=== PATIENT | male | born 1950 | race Caucasian/White ===

== ENCOUNTER 2018-09-18 17:41 | Inpatient (IN) ==
[2018-09-18] MEDS ORDERED: 0.9 % Sodium Chloride 1,000 ML IVC ONE (18:09)
[2018-09-18 18:22] LABS: Bilirubin,Urine Negative (Negative); Blood,Urine Large (Negative); Clarity,Urine Clear (Clear); Color,Urine Yellow (Yellow); Glucose,Urine (UA) Normal (Normal); Ketones,Urine Trace mg/dL (Negative); Leukocyte Esterase,Urine Small (Negative); Nitrite,Urine Positive (Negative); Protein,Urine 100 mg/dL (Neg-Trace); Urobilinogen,Urine Normal (Normal)
[2018-09-18 18:32] LABS: Bacteria,Urine Many per hpf (None-Few); RBC,Urine 50-100 per hpf (0-3); Squamous Epithelial Cell,Urine Few per lpf (None-Few)
[2018-09-18 18:33] LABS: Hyaline Casts,Urine Few per lpf (None-Few)
[2018-09-18] MEDS ORDERED: cefTRIAXone 1,000 MG in Water for inj. (sterile) 20 ML 10 ML IVP ONE (18:43)
[2018-09-18 18:59] LABS: Basophils # 0.1 K/mcL (0.0-0.2); Basophils % 0.3 %; Eosinophils % 0.1 %; Hematocrit 42.4 % (37.5-50.1); Hemoglobin 14.6 g/dL (12.9-16.9); Immature Granulocytes % 0.6 % (0-4); Lymphocytes % 2.9 %; Mean Corpuscular HGB Conc 34.4 g/dL (31.6-35.5); Mean Corpuscular Hemoglobin 30.3 pg (28.0-33.3); Mean Platelet Volume 11.8 fL (9.4-12.4); Monocytes # 1.2 K/mcL (0.0-1.3); Monocytes % 7.7 %; Neutrophils # 13.6 K/mcL (1.6-8.9); Platelet Count 173 K/mcL (140-400); Red Blood Count 4.82 M/mcL (4.19-5.50); Red Cell Distribution Width 13.7 % (11.5-14.5); Segmented Neutrophils % 88.4 %
[2018-09-18 19:02] LABS: Lymphocytes # 0.5 K/mcL (0.6-4.6)
[2018-09-18 19:12] LABS: Albumin 4.5 g/dL (3.5-5.7); Albumin/Globulin Ratio 1.3 (1.1-2.2); Bilirubin,Total 1.4 mg/dL (0.3-1.0); Globulin 3.5 g/dL (2.4-3.5); Potassium 3.6 mEq/L (3.5-5.1)
--- NOTE | 2018-09-18 19:35 | Emergency Department Note ---
Disposition Clinical Impression: Urinary tract infection Qualifiers: Urinary tract infection type: site unspecified Hematuria presence: without hematuria Qualified Code(s): N39.0 - Urinary tract infection, site not specified Disposition: Admitted As Inpatient Condition: Good Instructions: Urinary Tract Infection in Men (ED) Referrals: NONE,PCP [Primary Care Provider] - Time of Disposition: 19:44 General Adult HPI - General Chief complaint: ED Urogenital-Male Stated complaint: flu like symptoms Time Seen by Provider: 09/18/18 17:46 Source: patient Limitations: no limitations Nursing Notes Reviewed: Yes Vital Signs Reviewed: Yes - History of Present Illness HPI Narrative: fever since last night. has had back pain and polyuria and dysuria, decreased stream with dribbling. back pain has not been worse on one side. No abdominal pain. Vomited once last night. no diarrhea. took 600mg of ibuprofen about 3:30pm today. no cough, runny nose or sore throat. is bedfast for last 6 or so years secondary to MS. takes immuno-modulating infusions every 6 months. Says he had a UTI once but has been several years ago. No decubiti. no flu shot this season Onset (ago): day(s) (2) Location: back Radiation: non-radiation Pain Severity: moderate Pain Scale: 5 Quality: aching Consistency: constant Improves with: nothing Worsens with: nothing Associated symptoms: Reports: fever/chills, nausea/vomiting, other (urinary symptoms as above) Treatments Prior to Arrival: NSAID - Related Data Home Medications Medication Instructions Recorded Confirmed Citalopram [CeleXA] 20 mg PO BID 09/17/17 09/18/18 Furosemide [Lasix] 40 mg PO DAILY 09/17/17 09/18/18 Tizanidine HCl 4 mg PO 5XD 09/17/17 09/18/18 Allergies Allergy/AdvReac Type Severity Reaction Status Date / Time No Known Allergies Allergy Verified 09/18/18 17:46 Constitutional: Reports: fever, chills, weakness Eyes: Denies: eye pain, eye discharge ENT ED: Denies: ear pain, throat pain, dental pain, congestion Cardiovascular: Denies: chest pain, palpitations Respiratory: Denies: cough, dyspnea, wheezes Gastrointestinal: Reports: nausea, vomiting. Denies: abdominal pain, diarrhea Genitourinary: Reports: dysuria, frequency Musculoskeletal: Reports: back pain. Denies: neck pain, joint swelling Integumentary: Denies: rash, abrasion, lesions Neurological: Reports: weakness. Denies: headache Psychiatric: Denies: anxiety, depression Endocrine: Denies: fatigue, heat or cold intolerance Hematological/Lymphatic: Denies: easy bleeding, easy bruising Allergic/Immunologic: Denies: facial swelling, urticaria Past Medical History - Past Medical History Medical history: Reports: other Surgical history: Reports: cholecystectomy, other Psychiatric history: Reports: no psych history - Social History Smoking Status: Never smoker Smokeless Tobacco Status: No Alcohol use: Reports: none Drug use: Reports: none Physical Exam - General Limitations: no limitations General appearance: alert, in no apparent distress - Eye Eye exam: Present: normal appearance, PERRL, EOMI. Absent: scleral icterus, conjunctival injection - ENT ENT exam: normal exam, normal oropharynx, mucous membranes moist, TM's normal bilaterally - Neck Neck exam: Present: normal inspection, full ROM. Absent: lymphadenopathy - Chest Chest inspection: Present: normal inspection - Respiratory Respiratory exam: Present: normal lung sounds bilaterally - Cardiovascular Cardiovascular exam: Present: regular rate, normal rhythm, normal heart sounds - Abdominal Exam Abdominal exam: Present: soft, Non-Tender, normal bowel sounds - Rectal Exam [employer] Instructor present during exam: Yes Rectal exam: Present: normal inspection, normal rectal tone, prostate enlargement (4+ mildly boggy feeling prostate, no nodule). Absent: prostate tenderness - Male exam: Present: normal inspection, normal testicular lie - Extremities Exam Extremities exam: Present: normal inspection, pedal edema (1+ bilaterally) - Back Exam Back exam: Present: normal inspection. Absent: CVA tenderness (R), CVA tenderness (L) - Neurological Exam Neurological exam: Present: alert, oriented X3, other (generalized weakness) - Psychiatric Psychiatric exam: Present: normal affect, normal mood - Skin Skin exam: Present: warm, dry, normal color Course - Reevaluation(s) Reevaluation #1: he was given tylenol for his fever but it hasn't changed so far. has been given a liter of fluids. his blood pressure is stable and his lactate was normal. I discussed with Dr. Kennedy and he has been accepted for admission here Vital Signs Temperature 103.1 F H 09/18/18 17:47 Pulse Rate 90 09/18/18 17:47 Respiratory Rate 18 09/18/18 17:47 Blood Pressure 163/85 09/18/18 17:47 O2 Sat by Pulse Oximetry 96 09/18/18 17:47 Temperature 103.1 F H 09/18/18 19:25 Pulse Rate 101 09/18/18 19:25 Respiratory Rate 14 09/18/18 19:25 Blood Pressure 155/78 09/18/18 19:25 O2 Sat by Pulse Oximetry 96 09/18/18 17:47 Oxygen Delivery Oxygen Delivery Room Air Medical Decision Making - Differential Diagnosis UTI, prostatitis, pneumonia, influenza, sepsis, meningitis, intraabdominal - Medical Records Medical records reviewed: Yes I reviewed the patient's medical records. - Lab Data Lab results reviewed: Yes I reviewed the patient's lab results. Result diagrams: 09/18/18 18:35 09/18/18 18:35 Lab Results 09/18/18 09/18/18 09/18/18 Range/Units 18:05 18:19 18:35 WBC 15.4 H (4.3-11.1) K/mcL RBC 4.82 (4.19-5.50) M/mcL Hgb 14.6 (12.9-16.9) g/dL Hct 42.4 (37.5-50.1) % MCV 88.0 (83.0-100.0) fL MCH 30.3 (28.0-33.3) pg MCHC 34.4 (31.6-35.5) g/dL RDW 13.7 (11.5-14.5) % Plt Count 173 (140-400) K/mcL MPV 11.8 (9.4-12.4) fL Immature Gran % 0.6 (0-4) % Seg Neutrophils % 88.4 % Lymphocytes % 2.9 % Monocytes % 7.7 % Eosinophils % 0.1 % Basophils % 0.3 % Neutrophils # 13.6 H (1.6-8.9) K/mcL Lymphocytes # 0.5 L (0.6-4.6) K/mcL Monocytes # 1.2 (0.0-1.3) K/mcL Eosinophils # 0.0 (0.0-0.6) K/mcL Basophils # 0.1 (0.0-0.2) K/mcL Sodium (136-145) mEq/L Potassium (3.5-5.1) mEq/L Chloride (98-107) mEq/L Carbon Dioxide (23-29) mEq/L BUN (8-23) mg/dL Creatinine (0.70-1.30) mg/dL Est GFR ( Amer) (> 60) Est GFR (Non-Af Amer) (> 60) BUN/Creatinine Ratio (6-26) Glucose (70-105) mg/dL Calculated Osmolality (280-300) Lactic Acid (0.5-2.2) mmol/L Calcium (8.6-10.3) mg/dL Total Bilirubin (0.3-1.0) mg/dL AST (13-39) Units/L ALT (7-52) Units/L Alkaline Phosphatase (34-104) Units/L Serum Total Protein (6.4-8.9) g/dL Albumin (3.5-5.7) g/dL Globulin (2.4-3.5) g/dL Albumin/Globulin Ratio (1.1-2.2) Urine Color Yellow (Yellow) Urine Clarity Clear (Clear) Urine pH 6.0 (5.0-8.0) pH Units Ur Specific [place] 1.020 (1.010-1.025) Urine Protein 100 H (Neg-Trace) mg/dL Urine Glucose (UA) Normal (Normal) mg/dL Urine Ketones Trace H (Negative) mg/dL Urine Blood Large H (Negative) Urine Nitrite Positive A (Negative) Urine Bilirubin Negative (Negative) Urine Urobilinogen Normal (Normal) mg/dL Ur Leukocyte Esterase Small H (Negative) Urine Microscopic RBC 50-100 H (0-3) per hpf Urine Microscopic WBC 5-15 H (0-3) per hpf Ur Squamous Epith Cells Few (None-Few) per lpf Urine Bacteria Many H (None-Few) per hpf Hyaline Casts Few (None-Few) per lpf Ur Culture Indicated? YES A (NO) Stool Occult Blood Positive A (Negative) 09/18/18 09/18/18 Range/Units 18:35 18:35 WBC (4.3-11.1) K/mcL RBC (4.19-5.50) M/mcL Hgb (12.9-16.9) g/dL Hct (37.5-50.1) % MCV (83.0-100.0) fL MCH (28.0-33.3) pg MCHC (31.6-35.5) g/dL RDW (11.5-14.5) % Plt Count (140-400) K/mcL MPV (9.4-12.4) fL Immature Gran % (0-4) % Seg Neutrophils % % Lymphocytes % % Monocytes % % Eosinophils % % Basophils % % Neutrophils # (1.6-8.9) K/mcL Lymphocytes # (0.6-4.6) K/mcL Monocytes # (0.0-1.3) K/mcL Eosinophils # (0.0-0.6) K/mcL Basophils # (0.0-0.2) K/mcL Sodium 136 (136-145) mEq/L Potassium 3.6 (3.5-5.1) mEq/L Chloride 100 (98-107) mEq/L Carbon Dioxide 24 (23-29) mEq/L BUN 26 H (8-23) mg/dL Creatinine 2.07 H (0.70-1.30) mg/dL Est GFR ( Amer) 39 L (> 60) Est GFR (Non-Af Amer) 32 L (> 60) BUN/Creatinine Ratio 13 (6-26) Glucose 106 H (70-105) mg/dL Calculated Osmolality 287 (280-300) Lactic Acid 1.7 (0.5-2.2) mmol/L Calcium 10.0 (8.6-10.3) mg/dL Total Bilirubin 1.4 H (0.3-1.0) mg/dL AST 23 (13-39) Units/L ALT 26 (7-52) Units/L Alkaline Phosphatase 106 H (34-104) Units/L Serum Total Protein 8.0 (6.4-8.9) g/dL Albumin 4.5 (3.5-5.7) g/dL Globulin 3.5 (2.4-3.5) g/dL Albumin/Globulin Ratio 1.3 (1.1-2.2) Urine Color (Yellow) Urine Clarity (Clear) Urine pH (5.0-8.0) pH Units Ur Specific [place] (1.010-1.025) Urine Protein (Neg-Trace) mg/dL Urine Glucose (UA) (Normal) mg/dL Urine Ketones (Negative) mg/dL Urine Blood (Negative) Urine Nitrite (Negative) Urine Bilirubin (Negative) Urine Urobilinogen (Normal) mg/dL Ur Leukocyte Esterase (Negative) Urine Microscopic RBC (0-3) per hpf Urine Microscopic WBC (0-3) per hpf Ur Squamous Epith Cells (None-Few) per lpf Urine Bacteria (None-Few) per hpf Hyaline Casts (None-Few) per lpf Ur Culture Indicated? (NO) Stool Occult Blood (Negative) - Radiology Data Radiology results reviewed: Yes I reviewed the patient's radiology results.
[2018-09-18] MEDS ORDERED: Ibuprofen 400 MG TABLET PO PRN (20:37)
[2018-09-18] MEDS ORDERED: Naloxone 0.4 MG/ML INJ IVP PRN (20:37)
[2018-09-18] MEDS ORDERED: Ibuprofen 600 MG TABLET PO PRN (21:30)
[2018-09-18] MEDS: D5% in 0.45% NACL 1,000 ML IVC SCH (23:12)
[2018-09-18] MEDS: Acetaminophen 325 MG TABLET PO PRN (23:15)
[2018-09-18] MEDS: tiZANidine 4 MG TABLET PO SCH (23:23)
[2018-09-18] MEDS: *HR* Heparin 5,000 UNIT/ML VIAL SQ SCH (23:25)
[2018-09-19 04:51] LABS: Basophils # 0.1 K/mcL (0.0-0.2); Basophils % 0.3 %; Eosinophils % 0.1 %; Hematocrit 33.2 % (37.5-50.1); Hemoglobin 11.5 g/dL (12.9-16.9); Immature Granulocytes % 0.9 % (0-4); Lymphocytes # 1.6 K/mcL (0.6-4.6); Mean Corpuscular HGB Conc 34.6 g/dL (31.6-35.5); Mean Corpuscular Hemoglobin 30.4 pg (28.0-33.3); Mean Corpuscular Volume 87.8 fL (83.0-100.0); Mean Platelet Volume 11.8 fL (9.4-12.4); Monocytes # 2.1 K/mcL (0.0-1.3); Monocytes % 11.3 %; Neutrophils # 14.3 K/mcL (1.6-8.9); Platelet Count 148 K/mcL (140-400); Red Blood Count 3.78 M/mcL (4.19-5.50); Red Cell Distribution Width 13.8 % (11.5-14.5); Segmented Neutrophils % 78.4 %
[2018-09-19 05:03] LABS: Albumin 3.3 g/dL (3.5-5.7); Albumin/Globulin Ratio 1.2 (1.1-2.2); Calcium 8.9 mg/dL (8.6-10.3); Globulin 2.8 g/dL (2.4-3.5); Potassium 3.4 mEq/L (3.5-5.1); Total Protein 6.1 g/dL (6.4-8.9)
[2018-09-19] MEDS: cefTRIAXone 1,000 MG in Water for inj. (sterile) 20 ML 10 ML IVP SCH (09:45)
[2018-09-19] MEDS: D5% in 0.45% NACL 1,000 ML IVC SCH (09:45)
[2018-09-19] MEDS: tiZANidine 4 MG TABLET PO SCH ×4 (09:47→20:55)
[2018-09-19] MEDS: *HR* Heparin 5,000 UNIT/ML VIAL SQ SCH ×2 (09:47→20:59)
[2018-09-19] MEDS: Furosemide 40 MG TABLET PO SCH (09:48)
--- NOTE | 2018-09-19 16:02 | Internal Med History&Physical ---
Date of Encounter: 09/19/18 Time of Encounter: 16:01 Assessment and Plan (1) Urinary tract infection Current visit: Yes Status: Acute We presume this is prostatitis with bladder infection. He seems to be doing nicely on ceftriaxone. However, we will wait for bladder culture results and will need to consider 6 weeks of treatment given probable prostatitis. He requested a Luna catheter but there was resistance and I advised nursing to avoid insertion if he had resistance to some of that we would not irritate his prostate further. Postvoid residual was less than or equal to 100 mL's. We will admit him for IV antibiotics and to follow his vital signs. I think he is stable and that even though he is slightly dehydrated his blood pressure is normal given his debilitated state. He shows no signs of sepsis, currently but we need to follow and will continue his antibiotic as well as his IV fluids for at least a day. Qualifiers: Urinary tract infection type: site unspecified Hematuria presence: without hematuria Qualified Code(s): N39.0 - Urinary tract infection, site not specified (2) Multiple sclerosis Current visit: Yes Status: Acute This is apparently at baseline and treated with Tizanadine and a disease modifying anti-immune IV medication, every 6 months. (3) Depression Current visit: Yes Status: Acute Currently treated with Lexapro. We will continue this home medication. Qualifiers: Depression Type: other depression Qualified Code(s): F32.89 - Other specified depressive episodes (4) Heme positive stool Current visit: Yes Status: Acute Note is made of this when hemoglobin and other signs are stable. We will need to follow-up with family physician. We will empirically begin omeprazole. Internal Medicine - H&P: HPI Admitted From: Home Plans for Post Hospital Care: Home History of present illness: Mr. Patel is a 68 year old male who was in usual state of health until 2 days ago. Then, he developed warmth and feeling like he had a fever (not assessed) and frequent chills. He also became weak and more stiff. This stiffness is a symptom of infection or other illness causing a worsening in his multiple sclerosis. Because of low back pain, he took ibuprofen 600 mg, once only. He has no dysuria hematuria change in urine other than dark in color. He has intermittent irritable bowel type symptoms with constipation alternating with diarrhea. This is been evaluated per his primary doctor. He has had in March 2018 a colonoscopy and upper endoscopy. He had "a type of hernia but not a hiatal hernia" per his endoscopy. He has no melena or hematochezia. He rec ently began [id number] probiotics and states that this has helped. 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 Since then, he is been at home and is now essentially bedridden. He uses tizinainde 5 times a day and uses an infusion at a hospital every 6 months. He is due for this again in November. He also has an eye problem which she says is not optic neuritis, it causes him frequent eye pain and headache and he has a medicine as needed for this but he has not needed any in quite some time and is not sure what it is. He has no drug allergies. Medications were reviewed with him. Past surgical history includes a cervical procedure that was apparently fusion at C[facility]. He also had his gallbladder removed. No other surgeries of significance. Medical illnesses include GERD, hypertension, multiple sclerosis as above, as well as depression for which he takes Lexapro. He has a [id number] smoking history and stopped about 3 years ago but since then uses electronic cigarettes. He has just a couple of years of excess alcohol intake but not for over 40 years. He has been disabled/retired since 1999. He lives with his who has a large part of the information in terms of verification and/or interview. He is known to have early cataracts. He is bed ridden, most of the time. He is able to get out but this requires a special wheelchair. He requires assistance for transfers, all the time. He for upper plate denture but no lower. He recently had "his veins scanned." He states that this is all normal. Patient has no complaint of chest discomfort, dyspnea, orthopnea, breathing problems, palpitations, nausea or vomiting, constipation or diarrhea, other changes in bowel habits, heartburn, difficulty with urination, kidney problems or kidney stones, fevers chills or sweats, rash or itching, seizures, headache or lightheadedness, heat or cold intolerance, blood problems or anemia, or other new complaints, except as mentioned above. Review of systems is otherwise negative. Past Med Surg Social Fam HX - Past Medical History Medical history: other Additional medical history: multiple sclerosis Psychiatric history: no psych history - Past Surgical History Surgical History: cholecystectomy, other Additional surgical history: colonoscopy, fractured ribs, C3/4 fusion - Social History Smoking Status: Never smoker Smokeless Tobacco Status: No Alcohol use: none Drug use: none Internal Medicine - H&P: Meds Furosemide [Lasix] 40 mg PO DAILY 09/17/17 [History] Tizanidine HCl 4 mg PO 5XD 09/17/17 [History] Escitalopram [Lexapro] 10 mg PO DAILY 09/19/18 [History] Allergy/AdvReac Type Severity Reaction Status Date / Time No Known Allergies Allergy Verified 09/18/18 17:46 - Constitutional Vitals: Temp Pulse Resp BP Pulse Ox 98.6 F 56 16 98/62 96 09/19/18 11:55 09/19/18 11:55 09/19/18 11:55 09/19/18 12:18 09/19/18 11:55 Exam: Examination: (Except as mentioned above): General: In no apparent distress, alert and oriented 3. At the beginning of the exam he has marked facial flushing. This persists for about 10 minutes and seems to improve as exam goes on. Head: Atraumatic and normocephalic. Eyes: Extraocular muscles are intact, pupils equal round and reactive to light and accommodation. Sclerae anicteric. Ears: External ears are normal to inspection and hearing is grossly normal. Nose: Patent without lesion noted. Mouth: No intraoral lesions seen. Dentition is unremarkable. Neck: Supple with trachea midline. There is no thyromegaly or adenopathy and carotids are 2+ without bruit heard. Respiratory: No use of accessory muscles. Lungs are clear throughout. Normal airflow. Cardiovascular: Regular rate and rhythm without murmur appreciated. Abdomen: Bowel sounds are normal. No hepatosplenomegaly masses or tenderness. Obese and therefore difficult to palpate deeply. There is no costovertebral angle tenderness. He has no lower abdominal or suprapubic tenderness. Extremities: No cyanosis clubbing or edema. Neurological: A and O 3. Cranial nerves II through XII are intact. He is diffusely weak but is able to turn in bed, uses upper extremities adequately. He has 2 out of 5 weakness on the left and 3 out of 5 weakness on the right lower extremities. Skin: Warm and non-diaphoretic with no lesions noted. Breasts, pelvic and rectal: Not examined. However, emergency room physician did a rectal exam and noted that he had a large prostate which was boggy in consistency. There was also heme positive, nonbloody stool. Internal Med - H&P Results - Labs CBC & Chem 7: 09/19/18 04:40 09/19/18 04:40 Labs: Short CBC 09/18/18 09/19/18 Range/Units 18:35 04:40 WBC 15.4 H 18.2 H (4.3-11.1) K/mcL Hgb 14.6 11.5 L D (12.9-16.9) g/dL Hct 42.4 33.2 L (37.5-50.1) % Plt Count 173 148 (140-400) K/mcL Neutrophils # 13.6 H 14.3 H (1.6-8.9) K/mcL BMP 09/18/18 09/19/18 18:35 04:40 Sodium 136 135 L Potassium 3.6 3.4 L Chloride 100 103 Carbon Dioxide 24 23 BUN 26 H 29 H Creatinine 2.07 H 2.19 H Glucose 106 H 146 H Calcium 10.0 8.9 Liver Function 09/18/18 09/19/18 Range/Units 18:35 04:40 Total Bilirubin 1.4 H 1.0 (0.3-1.0) mg/dL AST 23 18 (13-39) Units/L ALT 26 21 (7-52) Units/L Alkaline Phosphatase 106 H 77 (34-104) Units/L Albumin 4.5 3.3 L (3.5-5.7) g/dL Urine 09/18/18 Range/Units 18:05 Urine Color Yellow (Yellow) Urine Clarity Clear (Clear) Urine pH 6.0 (5.0-8.0) pH Units Ur Specific [place] 1.020 (1.010-1.025) Urine Protein 100 H (Neg-Trace) mg/dL Urine Glucose (UA) Normal (Normal) mg/dL - Impressions ITS Impressions Chest X-Ray 09/18/18 18:13 IMPRESSION: No acute abnormality detected. D/ / Itz Webb MD / Itz Webb MD Interpreting Provider: tIz Webb MD
[2018-09-19] MEDS: Acetaminophen 325 MG TABLET PO PRN (20:54)
[2018-09-20] MEDS: Acetaminophen 325 MG TABLET PO PRN (04:15)
[2018-09-20] MEDS ORDERED: Lactobacillus 1 EACH CAP.SPRINK PO SCH (09:00)
[2018-09-20] MEDS: cefTRIAXone 1,000 MG in Water for inj. (sterile) 20 ML 10 ML IVP SCH (09:17)
[2018-09-20] MEDS: tiZANidine 4 MG TABLET PO SCH ×2 (09:17→13:39)
[2018-09-20] MEDS: Furosemide 40 MG TABLET PO SCH (09:17)
--- NOTE | 2018-09-20 09:23 | Internal Med Progress Note ---
Addendum entered and electronically signed by Rocky Kennedy MD 09/20/18 11:49: I have personally performed a face to face evaluation on this patient. I have r eviewed and agree with the care plan. History and Exam by me shows: Patient is generally feeling well. He has no flank, back, lower back, suprapubic, or urinary symptoms. He would like to go home today as he is tired of the bed and would rather be in his wheelchair and up and around. We discussed his transportation home. Because of repair of his pain, he will need some other mode of transportation and social service said that I should simply referred to arrange nursing to have him ambulet transportation. Discussed care with other providers and/or nursing. Patient has no complaint of chest discomfort, dyspnea, orthopnea, palpitations, nausea or vomiting, constipation or diarrhea, other changes in bowel habits, difficulty with urination, rash or itching, or other new complaints, except as mentioned above. Review of systems is otherwise negative. Examination: (Except as mentioned above): General: In no apparent distress. Alert and oriented 3. Nondiaphoretic. Head: Atraumatic and normocephalic. Respiratory: No use of accessory muscles. Lungs are clear throughout. Normal airflow. Cardiovascular: Regular rate and rhythm without murmur appreciated. Abdomen: Bowel sounds are normal. No hepatosplenomegaly mass or tenderness appreciated. Obese and therefore difficult to palpate deeply. No CVA tenderness. Extremities: No cyanosis clubbing or edema. He has the same weakness as described, before. Skin: Warm and non-diaphoretic with no new lesions noted. Creatinine has decreased markedly to 1.28. His potassium is low at 3.1 and magnesium is marginally low at 1.8. We will arrange potassium supplementation for a few days. I agreed to send him on a week's worth of cephalosporin and probably 5 or 6 weeks of suppressive antibiotics, after we know about sensitivities which unfortunately will not be until tomorrow. He understands importance of follow- up. Original Note: Date of Encounter: 09/20/18 Time of Encounter: 09:20 - Assessment and plan (1) Urinary tract infection Current Visit: Yes Status: Acute Assessment and plan: Urine culture pending. Patient denies any symptoms. Continue ceftriaxone. Qualifiers: Urinary tract infection type: site unspecified Hematuria presence: without hematuria Qualified Code(s): N39.0 - Urinary tract infection, site not speci fied (2) Multiple sclerosis Current Visit: Yes Status: Acute Assessment and plan: Patient denies any new symptoms. Continue tizanidine. Assist with ADLs. (3) Depression Current Visit: Yes Status: Acute Assessment and plan: Stable with Lexapro. Denies any complaints. Qualifiers: Depression Type: other depression Qualified Code(s): F32.89 - Other specified depressive episodes (4) Heme positive stool Current Visit: Yes Status: Acute Assessment and plan: Continue omeprazole. Will monitor. - Time Spent With Patient less than 15 minutes - Subjective Interval history: Resting in bed, denies any pain or acute needs at this time. Denies fever, chills, nausea, vomiting or diarrhea. Denies any urinary symptoms. States bowels moving as normal. Maintaining appetite and hydration. Awaiting urine culture. Continue ceftriaxone. - Constitutional Vitals: Temp Pulse Resp BP Pulse Ox 98.8 F 67 17 172/77 91 09/20/18 08:31 09/20/18 08:31 09/20/18 08:31 09/20/18 08:31 09/20/18 08:31 General appearance: Present: cooperative, A&O X 3, pleasant, no acute distress, answers questions appropriately - Head Head exam: Present: atraumatic, normocephalic - Eye Eye exam: Present: PERRL, conjuntiva pink, sclera anicteric Pupils: Present: PERRL - Neck Neck exam general surgery: Present: supple, trachea midline. Absent: lymphadenopathy - Respiratory Respiratory exam: Present: CTAB. Absent: accessory muscle use, rales, rhonchi, wheezes - Cardiovascular Cardiovascular exam: Present: RRR, +S1, +S2. Absent: diastolic murmur, gallop, rubs, systolic murmur - GI/Abdominal GI/Abdominal exam: Present: normal bowel sounds, soft, no peritoneal signs. Absent: distended, tenderness - Extremities Exam Extremities exam: Present: warm, radial pulses palpable and symmetrical. Absent: calf tenderness, cyanotic, pedal edema Additional comments: RUE, RLE strength 3/5, LUE, LLE 2/5 - Neurological Exam Neurological exam: Present: CN II-XII intact, oriented X3, no focal deficits. Absent: pronater drift, facial droop, speech deficit - Skin Skin exam: Present: dry, intact Internal Medicine: Result - Labs CBC & Chem 7: 09/19/18 04:40 09/19/18 04:40 Consult Discharge Plan - Plan Referrals: NONE,PCP [Primary Care Provider] -
[2018-09-20] MEDS: *HR* Heparin 5,000 UNIT/ML VIAL SQ SCH (09:25)
[2018-09-20] MEDS ORDERED: cloNIDine HCl 0.1 MG TABLET PO PRN (10:17)
[2018-09-20 11:14] LABS: Basophils # 0.1 K/mcL (0.0-0.2); Basophils % 0.7 %; Eosinophils # 0.1 K/mcL (0.0-0.6); Eosinophils % 0.6 %; Hematocrit 37.4 % (37.5-50.1); Hemoglobin 13.3 g/dL (12.9-16.9); Immature Granulocytes % 0.6 % (0-4); Lymphocytes # 0.8 K/mcL (0.6-4.6); Mean Corpuscular HGB Conc 35.6 g/dL (31.6-35.5); Mean Corpuscular Volume 87.2 fL (83.0-100.0); Mean Platelet Volume 11.9 fL (9.4-12.4); Monocytes # 0.9 K/mcL (0.0-1.3); Monocytes % 10.1 %; Neutrophils # 7.1 K/mcL (1.6-8.9); Platelet Count 169 K/mcL (140-400); Red Blood Count 4.29 M/mcL (4.19-5.50); Red Cell Distribution Width 13.7 % (11.5-14.5)
[2018-09-20 11:24] LABS: BUN/Creatinine Ratio 16 (6-26); Blood Urea Nitrogen 21 mg/dL (8-23); Calcium 9.5 mg/dL (8.6-10.3); Carbon Dioxide 24 mEq/L (23-29); Chloride 103 mEq/L (98-107); Glucose 98 mg/dL (70-105); Osmolality,Calculated 283 (280-300); Potassium 3.1 mEq/L (3.5-5.1); Sodium 135 mEq/L (136-145); eGFR For Non-African Americans 56 (> 60)
--- NOTE | 2018-09-20 12:00 | Discharge Summary ---
Addendum entered and electronically signed by Rocky Kennedy MD 09/21/18 10:55: Patient's urine culture returned with Morganella morganii which is resistant to cefazolin. For this reason, we will switch him from Omnicef to Bactrim for coverage. This is been called to his pharmacy and we will ask that his primary care physician be notified. Addendum entered and electronically signed by Rocky Kennedy MD 09/20/18 13:22: Please see my progress note, today. Original Note: - NOTES TO OUTPATIENT PROVIDER Notes to Outpatient Provider: Urine culture pending. Should have results . Continue [facility] staff for 7 days. Might require 6 weeks of at antibiotic due to prostatitis Orders not resulted at time of discharge: Pending orders 09/18/18 18:05 Culture,Urine [RM] Stat 09/18/18 18:35 Culture,Blood [BC] Stat Date of Encounter: 09/20/18 Time of Encounter: 11:58 - Discharge Diagnosis (1) Urinary tract infection Priority: Primary Status: Acute Comments: Continue omnicef 300 mg one tablet every 12 hours for 7 days. Follow up with PCP. Qualifiers: Urinary tract infection type: site unspecified Hematuria presence: without hematuria Qualified Code(s): N39.0 - Urinary tract infection, site not specified (2) Multiple sclerosis Priority: Secondary Status: Chronic Comments: Stable. Continue current medication. Follow up with neurologist. (3) Depression Priority: Secondary Status: Chronic Comments: stable. continue lexapro Qualifiers: Depression Type: other depression Qualified Code(s): F32.89 - Other specified depressive episodes (4) Heme positive stool Priority: Secondary Status: Acute Comments: hgb stable. continue omeprazole. follow up with PCP. (5) Hypokalemia Priority: Secondary Status: Acute Comments: K 3.1. Prescription sent home with patient for potassium chloride 20meq 3 times a day for 3 days Hospital course: Mr. Patel is a 68 year old male Discharge discussed with: patient, family, nurse, social work - Time Spent with Patient Total time spent providing and/or coordinating discharge services: Less than 30 minutes - Discharge Medications Home Medications: Furosemide [Lasix] 40 mg PO DAILY 09/17/17 [History] Tizanidine HCl 4 mg PO 5XD 09/17/17 [History] Escitalopram [Lexapro] 10 mg PO DAILY 09/19/18 [History] Acetaminophen [Tylenol] 1,000 mg PO Q4H PRN tablet 09/20/18 [Rx] Ibuprofen [Motrin] 600 mg PO Q6HR PRN tablet 09/20/18 [Rx] Lactobacillus [Culturelle] 1 each PO DAILY cap.sprink 09/20/18 [Rx] Omeprazole [PriLOSEC] 20 mg PO BIDAC 14 Days #14 capsule. 09/20/18 [Rx] Allergies/Adverse Reactions: Allergy/AdvReac Type Severity Reaction Status Date / Time No Known Allergies Allergy Verified 09/18/18 17:46 Date of admission: 09/18/18 20:02 Primary care physician: PCP NONE Discharging clinician: Rocky Kennedy Anticipated date of discharge: 09/20/18 - Constitutional Vitals: see exam on progress note dated this date Temp Pulse Resp BP Pulse Ox 98.8 F 67 17 172/77 91 09/20/18 08:31 09/20/18 08:31 09/20/18 08:31 09/20/18 08:31 09/20/18 08:31 General appearance: Present: cooperative, A&O X 3, pleasant, no acute distress, answers questions appropriately - Patient Status Disposition: Home, Self-Care Condition: Good Overall status at discharge: patient is progressing back to baseline - Discharge Instructions Follow Up With: NONE,PCP [Primary Care Provider] - - Diet and Activity Activity: increase activity as tolerated Diet: advance to your usual diet
[2018-09-20 15:25] VITALS: BP 164/80
== END 2018-09-20 15:00 | disposition home or self-care (01) | DRG 690 ==
LOC: EMEROOGRE 17:41 → INPGRE 20:02